=== PATIENT | male | born 1970 | race Caucasian/White ===

== ENCOUNTER 2016-07-09 10:43 | Emergency (ER) | payer SELFPAY ==
[~2016-07-09] VITALS: Ht 190.5 cm; Wt 114.9 kg
[~2016-07-09 10:43] MED LIST: AMOXICILLIN875 MG PO; ERYTHROMYCIN O3.5 GM LEFT EYE; FLEXERIL10 MG PO; HYDROCODON-ACE1 EAC7 PO; MEDROL DOSEPAK4 MG PO; METHADONE10 MG/1 M1 PO; MOTRIN600 MG PO; NAPROXEN500 MG PO; NOHOMEMEDS; NORCO 5/3251 TABLET PO; PERCOCET 5/31 TABLET PO; PREDNISONE10 MG PO; PREDNISONE20 MG PO; PROAIR HFA8.5 GM IH; TRAZODONE HCL100 MG PO; WELCHOL3.75 GM PO; ZITHROMAX Z-PA250 MG PO
[2016-07-09] MEDS ORDERED: MOTRIN600 MG PO (12:44)
[2016-07-09] MEDS ORDERED: ZITHROMAX Z-PA250 MG PO (13:01)
[2016-07-09 13:02] VITALS: BP 1141/84
== END 2016-07-09 13:04 | disposition home or self-care (01) ==
LOC: EME 10:43
DX: J20.9 Acute bronchitis, unspecified (principal); F17.200 Nicotine dependence, unspecified, uncomplicated
CPT/HCPCS: 71020; 99281; 99283

== ENCOUNTER 2017-06-01 09:06 | Emergency (ER) | payer SELFPAY ==
[~2017-06-01] VITALS: Ht 190.5 cm; Wt 117.0 kg
[2017-06-01] MEDS ORDERED: NAPROSYN500 MG PO (10:18)
[2017-06-01 10:52] VITALS: BP 118/88
== END 2017-06-01 10:52 | disposition home or self-care (01) ==
LOC: EME 09:06
DX: S92.512A Displaced fracture of proximal phalanx of left lesser toe(s), initial encounter for closed fracture (principal); W22.03XA Walked into furniture, initial encounter; R00.0 Tachycardia, unspecified; F17.200 Nicotine dependence, unspecified, uncomplicated
CPT/HCPCS: 73660; 99281; 99284